=== PATIENT | female | born 1930 | race Caucasian/White ===

== ENCOUNTER → 2018-04-08 | Outpatient (CLI) | payer MEDICARE, BC ==
[2018-04-08 11:03] LABS: HIV 1/2 Antibodies Non-Reactive; HIV-1p24 Antigen Non-Reactive
== END ==
LOC: COL.LAB 09:58
PROVIDERS: Orthopaedic Surgery
DX: Z01.812 Encounter for preprocedural laboratory examination (principal); M16.11 Unilateral primary osteoarthritis, right hip

== ENCOUNTER 2018-06-09 13:20 | Inpatient (IN) | payer MEDICARE, BC ==
[~2018-06-09] VITALS: Ht 152.4 cm; Wt 43.3 kg
[2018-07-18] VITALS (12 sets, daily range): BP systolic 106–156; BP diastolic 50–87; PULSE 66–86; TEMP 97.3–98.6
[2018-07-18] MEDS ORDERED: DYAZIDE 25 MG-31 CAP PO (05:44)
[2018-07-18] MEDS ORDERED: INDERAL 20MG20 MG PO (05:45)
[2018-07-18] MEDS ORDERED: ASPIRIN 81M81 MG/TA2 PO (05:45)
[2018-07-18] MEDS ORDERED: PRILOSEC 20MG20 MG PO (05:46)
[2018-07-18] MEDS ORDERED: VITAMINE200 (05:46)
[2018-07-19 04:17] VITALS: BP 111/54; PULSE 70; TEMP 98.6
[2018-07-19 06:49] LABS: HEMOGLOBIN 10.9 g/dl (12.5-16.0)
[2018-07-19 06:50] LABS: HEMATOCRIT 33.9 % (37.0-47.0)
[2018-07-19 07:34] VITALS: BP 128/60; PULSE 77; TEMP 99.3
[2018-07-19 12:08] VITALS: BP 100/56; PULSE 62; TEMP 98.3
[2018-07-19 16:11] VITALS: BP 131/62; PULSE 80; TEMP 99.7
[2018-07-19 21:56] VITALS: BP 101/58; PULSE 79; TEMP 98.9
[2018-07-20 00:17] VITALS: BP 99/44; PULSE 69; TEMP 99
[2018-07-20 04:23] VITALS: BP 105/62; PULSE 71; TEMP 97.1
[2018-07-20] MEDS ORDERED: ROXICODONE 55 MG/TAB PO (06:43)
[2018-07-20] MEDS ORDERED: NORCO 325 MG-7.1 TAB PO (06:43)
[2018-07-20] MEDS ORDERED: ASPI325T6 PO (06:43)
[2018-07-20 07:32] VITALS: BP 132/56; PULSE 76; TEMP 98.3
[2018-07-20 11:28] VITALS: BP 100/52; PULSE 71; TEMP 98.3
== END 2018-07-20 14:00 | disposition home or self-care (01) | DRG 470 ==
LOC: JCC 06-20 07:30
PROVIDERS: Orthopaedic Surgery
PROC: 0SR90JA Replacement of Right Hip Joint with Synthetic Substitute, Uncemented, Open Approach (ICD-10-PCS; principal; 2018-07-18 07:30)
DX: M16.11 Unilateral primary osteoarthritis, right hip (principal); Z85.828 Personal history of other malignant neoplasm of skin; I10 Essential (primary) hypertension
CPT/HCPCS: A4314; A9284; C1713; C1776; J0690; J2250; J2704; J7120